=== PATIENT | male | born 1980 | race African-American/Black ===

== ENCOUNTER 2020-01-20 17:49 | Emergency (ER) | payer SELFPAY ==
[~2020-01-20] VITALS: Ht 190.5 cm; Wt 104.5 kg
[2020-01-20 17:58] VITALS: TEMP 98.8
[2020-01-20 18:33] LABS: BASO % 0.6 % (0.0-2.0); EOS # 0.1 (0.0-0.7); EOS % 1.8 % (0-4.0); GRAN # 2.4 (1.4-6.5); GRAN % 48.6 % (42.2-75.2); HEMATOCRIT 46.7 % (42.0-52.0); HEMOGLOBIN 15.9 g/dl (13.5-18.0); LYMPH # 1.9 (1.2-3.4); LYMPH % 38.4 % (20.0-51.0); MEAN CELL VOLUME 87 fl (80.0-100.0); MEAN CORPUSCULAR HEMOGLOBIN 30 pg (27.0-31.0); MEAN CORPUSCULAR HGB CONC 34 g/dl (33.0-37.0); MEAN PLATELET VOLUME 8.8 fl (7.4-10.4); MONO # 0.5 (0.1-0.6); MONO % 10.4 % (1.7-9.3); PLATELET COUNT 279 K/mm3 (130-400); RED BLOOD COUNT 5.39 M/mm3 (4.20-5.60); REDCELL DISTRIBUTION WIDTH-CV 13.1 % (11.5-14.5)
[2020-01-20 18:45] LABS: ALANINE AMINOTRANSFERASE 19 U/L (4-49); ALBUMIN 4.4 gm/dL (3.5-5.0); ALKALINE PHOSPHATASE 65 U/L (50-136); ANION GAP 9 mmol/L (7-16); AST,SGOT 27 U/L (15-37); BILIRUBIN,TOTAL 1.6 mg/dL (0.0-1.0); BLOOD UREA NITROGEN 13 mg/dL (9-20); CALCIUM 9.5 mg/dL (8.4-10.2); CARBON DIOXIDE 23 mmol/L (22-30); CHLORIDE 105 mmol/L (98-107); GLUCOSE 95 mg/dL (74-106); POTASSIUM 3.6 mmol/L (3.4-5.0); SODIUM 137 mmol/L (137-145); TOTAL PROTEIN 8.3 gm/dL (6.4-8.2)
[2020-01-20 18:48] LABS: ACETAMINOPHEN < 10 ug/mL (10-30); ALCOHOL(ethanol),MEDICAL < 10 mg/dL; SALICYLATE < 1.0 mg/dL
[2020-01-20 19:03] LABS: COLLECTION METHOD CLEAN CATCH
[2020-01-20 19:12] LABS: MUCOUS Present /lpf; PH 5 (5-8); SQUAMOUS EPITHELIAL 0-2 /hpf; URINE APPEARANCE Clear; URINE BACTERIA None Seen /hpf; URINE BILIRUBIN Negative (NEGATIVE); URINE BLOOD Negative (NEGATIVE); URINE COLOR Amber; URINE GLUCOSE Negative (NEGATIVE); URINE KETONE Trace (NEGATIVE); URINE LEUKOCYTE ESTERASE Negative (NEGATIVE); URINE NITRATE Negative (NEGATIVE); URINE PROTEIN(semi-quant) 2+ (NEGATIVE); URINE RBC 0-2 /hpf
[2020-01-20 19:15] LABS: TSH w REFLEX 0.917 uIU/mL (0.465-4.680)
[2020-01-20 19:22] LABS: TRICYCLIC ANTIDEPRESS URINE NEGATIVE
[2020-01-20 21:10] VITALS: BP 118/20
[2020-01-21 10:30] VITALS: PULSE 74
== END 2020-01-21 10:36 | disposition home or self-care (01) ==
LOC: COL.ER 17:49
PROVIDERS: Nurse Practitioner
DX: F15.10 Other stimulant abuse, uncomplicated (principal); F22 Delusional disorders
CPT/HCPCS: J1200; J1630; J2060

== ENCOUNTER 2023-12-02 18:26 | Emergency (ER) | payer SELFPAY ==
[~2023-12-02] VITALS: Ht 190.5 cm; Wt 90.5 kg
[2023-12-02 18:35] VITALS: BP 123/76; TEMP 97.6
[2023-12-02 19:50] VITALS: PULSE 60
== END 2023-12-02 19:55 | disposition home or self-care (01) ==
LOC: COL.ER 18:26
DX: F41.9 Anxiety disorder, unspecified (principal); F11.23 Opioid dependence with withdrawal; Z79.899 Other long term (current) drug therapy